=== PATIENT | male | born 1970 | race Caucasian/White ===

== ENCOUNTER 2021-08-18 07:28 | Emergency (ER) | payer BC, OTHER ==
[~2021-08-18] VITALS: Ht 177.8 cm; Wt 76.3 kg
[2021-08-18 07:39] VITALS: BP 150/93
[2021-08-18] MEDS ORDERED: ONDANSETRON 4 MG/2 ML (SDV) Z0FRAN IVP STA (07:42)
[2021-08-18] MEDS ORDERED: NS IV 1000 ML 1,000 ML IV STA (07:42)
--- NOTE | 2021-08-18 07:48 | ED General ---
General Chief Complaint: Abdominal/GI Problems Stated Complaint: VOMITING Source of Information: Patient History of Present Illness Date Seen by Provider: Aug 18, 2021 Time Seen by Provider: 07:30 Initial Comments 51-year-old male presenting with complaints of nausea, vomiting, diarrhea, body aches, subjective fever and chills since Thursday, August 14. He did have a Covid swab done with urgent care on Thursday after the first and reports that it was negative. He has continued to have vomiting and watery diarrhea over the weekend so he decided to come to the emergency department today. He has not tried to contact his primary care provider. He has not been seen by his primary care provider and debated about any of the symptoms. He told the nurses that he was keeping down water and had eaten a can of peaches yesterday without problem. However, he told me he could not keep "anything" down. He states he has watery diarrhea and has gone 3 times in the last hour. He last had emesis last night. He denies any abdominal pain, pain with urination, blood in vomit or diarrhea. He reports being light headed with standing. Timing/Duration: 5-6 Days Severity: Moderate Associated Systoms: No Chest Pain, No Cough, No Diaphoresis; Fever/Chills (subjective); No Headaches, No Loss of Appetite; Malaise, Nausea/Vomiting; No Rash, No Seizure, No Shortness of Air, No Syncope, No Weakness Allergies and Home Medications Allergies Coded Allergies: No Known Drug Allergies (Unverified , 08/18/21) Patient Home Medication List Home Medication List Reviewed: Yes Ondansetron (Ondansetron Odt) 4 Mg Tab.rapdis, 4 MG PO Q6H PRN for NAUSEA/VOMITING Prescribed by: RADHA VEGA on 08/18/21 0827 Review of Systems Review of Systems Constitutional: see HPI EENTM: no symptoms reported Respiratory: no symptoms reported Cardiovascular: no symptoms reported Gastrointestinal: see HPI Genitourinary: see HPI Musculoskeletal: other (generalized body aches) Skin: no symptoms reported Psychiatric/Neurological: No Symptoms Reported Past Pckcejw-Ehpbdd-Wjgtqi Hx Patient Social History Tobacco Use?: Yes Alcohol Use?: Yes Past Medical History Surgeries: Yes Orthopedic (shoulder) Respiratory: No Cardiac: No Neurological: No Genitourinary: No Gastrointestinal: No Musculoskeletal: No Endocrine: No HEENT: No Psychosocial: Yes Anxiety, Depression Physical Exam Vital Signs Vital Signs - First Documented 08/18/21 07:39 Temp 36.1 Pulse 85 Resp 16 B/P (MAP) 150/93 (112) Pulse Ox 96 O2 Delivery Room Air Capillary Refill : Height, Weight, BMI Height: '" Weight: lbs. oz. kg; BMI Method: General Appearance: No Apparent Distress, WD/WN HEENT: PERRL/EOMI, Pharynx Normal, Moist Mucous Membranes Neck: Full Range of Motion, Normal Inspection, Non Tender, Supple Respiratory: Chest Non Tender, Lungs Clear, Normal Breath Sounds, No Accessory Muscle Use, No Respiratory Distress Cardiovascular: Regular Rate, Rhythm, Normal Peripheral Pulses Gastrointestinal: Normal Bowel Sounds, No Pulsatile Mass, Non Tender, Soft Rectal: Deferred Extremity: Normal Capillary Refill, Normal Inspection, No Pedal Edema Neurologic/Psychiatric: Alert, Oriented x3, auto tune up mechanic II-XII Norm as Tested Skin: Normal Color, Warm/Dry Focused Exam Lactate Level 08/18/21 07:40: Lactic Acid Level 0.79 Lactic Acid Level Laboratory Tests Test 08/18/21 07:40 Lactic Acid Level 0.79 MMOL/L (0.50-2.00) Progress/Results/Core Measures Suspected Sepsis SIRS Temperature: Pulse: Respiratory Rate: Laboratory Tests 08/18/21 07:40: White Blood Count 9.6 Blood Pressure / Mean: 08/18/21 07:40: Lactic Acid Level 0.79 Laboratory Tests 08/18/21 07:40: Creatinine 0.80, Platelet Count 198, Total Bilirubin 0.3 Results/Orders Lab Results Laboratory Tests Test 08/18/21 07:40 Range/Units White Blood Count 9.6 4.3-11.0 10^3/uL Red Blood Count 5.56 H 4.30-5.52 10^6/uL Hemoglobin 17.7 13.3-17.7 g/dL Hematocrit 51 40-54 % Mean Corpuscular Volume 92 80-99 fL Mean Corpuscular Hemoglobin 32 25-34 pg Mean Corpuscular Hemoglobin Concent 34 32-36 g/dL Red Cell Distribution Width 13.0 10.0-14.5 % Platelet Count 198 130-400 10^3/uL Mean Platelet Volume 9.0 9.0-12.2 fL Immature Granulocyte % (Auto) 0 % Neutrophils (%) (Auto) 60 42-75 % Lymphocytes (%) (Auto) 20 12-44 % Monocytes (%) (Auto) 17 H 0-12 % Eosinophils (%) (Auto) 3 0-10 % Basophils (%) (Auto) 1 0-10 % Neutrophils # (Auto) 5.8 1.8-7.8 X 10^3 Lymphocytes # (Auto) 1.9 1.0-4.0 X 10^3 Monocytes # (Auto) 1.6 H 0.0-1.0 X 10^3 Eosinophils # (Auto) 0.3 0.0-0.3 10^3/uL Basophils # (Auto) 0.1 0.0-0.1 10^3/uL Immature Granulocyte # (Auto) 0.0 0.0-0.1 10^3/uL Sodium Level 134 L 135-145 MMOL/L Potassium Level 4.0 3.6-5.0 MMOL/L Chloride Level 96 L 98-107 MMOL/L Carbon Dioxide Level 25 21-32 MMOL/L Anion Gap 13 5-14 MMOL/L Blood Urea Nitrogen 14 7-18 MG/DL Creatinine 0.80 0.60-1.30 MG/DL Estimat Glomerular Filtration Rate 101 BUN/Creatinine Ratio 18 Glucose Level 105 70-105 MG/DL Lactic Acid Level 0.79 0.50-2.00 MMOL/L Calcium Level 9.0 8.5-10.1 MG/DL Corrected Calcium 8.8 8.5-10.1 MG/DL Total Bilirubin 0.3 0.1-1.0 MG/DL Aspartate Amino Transf (AST/SGOT) 21 5-34 U/L Alanine Aminotransferase (ALT/SGPT) 19 0-55 U/L Alkaline Phosphatase 62 40-136 U/L Total Protein 7.9 6.4-8.2 GM/DL Albumin 4.3 3.2-4.5 GM/DL Lipase 24 8-78 U/L My Orders Orders - RADHA VEGA MD Comprehensive Metabolic Panel (08/18/21 07:42) Lipase (08/18/21 07:42) Ed Iv/Invasive Line Start (08/18/21 07:42) Cbc With Automated Diff (08/18/21 07:42) Lactic Acid Analyzer (08/18/21 07:42) Ns Iv 1000 Ml (Sodium Chloride 0.9%) (08/18/21 07:42) Ondansetron Injection (Zofran Injectio (08/18/21 07:42) Vital Signs/I&O 08/18/21 07:39 Temp 36.1 Pulse 85 Resp 16 B/P (MAP) 150/93 (112) Pulse Ox 96 O2 Delivery Room Air Capillary Refill : Progress Note #1: Progress Note Vitals are all stable and he is without fever here. He is not tachycardic or hypotensive to indicate severe dehydration. Will check basic labs and a lactic acid as he reports non stop watery diarrhea stools and subjective fever and chills. Give IVF 1 Liter NS bolus for hydration, Zofran 4 mg IV for nausea and let him try to drink here. Differential diagnosis includes gastroenteritis, colitis, diverticulitis, gastritis, food poisoning Progress Note #2: Progress Note Labs are all stable without acute significant abnormality to indicate severe dehydration, infection or sepsis. He had no diarrhea while in ED for over an hour. Pt reports feeling better after fluids and treatment. tolerating po in ED. Discharge on Zofran and counseled on liquid diet and bland diet. Consider Imodium for his diarrhea. Given information for the [facility] for establishing care and follow up as pt reports recently moving to [facility] from [facility]. Departure Impression Primary Impression: Nausea vomiting and diarrhea Disposition: 01 HOME, SELF-CARE Condition: Stable Departure-Patient Inst. Decision time for Depature: 08:27 Referrals: ALESSANDRO DAY APRN (PCP) Primary Care Physician NO,LOCAL PHYSICIAN (Family) Primary Care Physician [facility] [place] Patient Instructions: [place] Diet, Diarrhea, Adult ED, Full Liquid Diet, Nausea and Vomiting, Adult ED Add. Discharge Instructions: Try following a liquid diet for 24 hours and if tolerating that then advance to bland foods such as toast, rice, applesauce. If doing ok with those for 12 to 24 hours then advance back to regular foods as you tolerate. Use the Zofran dissolving tablets to help with nausea. Consider trying some Immodium over the counter to help with the Diarrhea. If you want to establish care with local provider in [place] you could call [phone] to get set up with an appointment and provider. All discharge instructions reviewed with patient and/or family. Voiced understanding. Scripts Ondansetron (Ondansetron Odt) 4 Mg Tab.rapdis 4 MG PO Q6H PRN for NAUSEA/VOMITING for 2 Days, #8 TAB 0 Refills Prov: RADHA VEGA MD 08/18/21 RADHA VEGA MD Aug 18, 2021 07:48
[2021-08-18 07:49] LABS: BASOPHILS # (AUTO) 0.1 10^3/uL (0.0-0.1); BASOPHILS % (AUTO) 1 % (0-10); EOSINOPHILS # (AUTO) 0.3 10^3/uL (0.0-0.3); EOSINOPHILS % (AUTO) 3 % (0-10); HEMATOCRIT 51 % (40-54); HEMOGLOBIN 17.7 g/dL (13.3-17.7); LYMPHOCYTES # (AUTO) 1.9 X 10^3 (1.0-4.0); LYMPHOCYTES % (AUTO) 20 % (12-44); MEAN CORPUSCULAR HEMOGLOBIN 32 pg (25-34); MEAN CORPUSCULAR HGB CONC 34 g/dL (32-36); MEAN CORPUSCULAR VOLUME 92 fL (80-99); MONOCYTES # (AUTO) 1.6 X 10^3 (0.0-1.0); MONOCYTES % (AUTO) 17 % (0-12); NEUTROPHILS # (AUTO) 5.8 X 10^3 (1.8-7.8); NEUTROPHILS % (AUTO) 60 % (42-75); PLATELET COUNT 198 10^3/uL (130-400); WHITE BLOOD COUNT 9.6 10^3/uL (4.3-11.0)
[2021-08-18] MEDS ORDERED: ONDA4TAB11 PO ×2 (07:53→08:27)
[2021-08-18 08:10] LABS: ALBUMIN 4.3 GM/DL (3.2-4.5); BILIRUBIN,TOTAL 0.3 MG/DL (0.1-1.0); CREATININE SERUM 0.8 MG/DL (0.60-1.30); TOTAL PROTEIN 7.9 GM/DL (6.4-8.2)
== END 2021-08-18 08:32 | disposition home or self-care (01) ==
LOC: EDUNIT# 07:28 → ER FS 07:30
DX: R11.2 Nausea with vomiting, unspecified (principal); R19.7 Diarrhea, unspecified; Z20.822 Contact with and (suspected) exposure to COVID-19
CPT/HCPCS: 36415; 80053; 83605; 83690; 85025